=== PATIENT | female | born 1950 | race Caucasian/White ===

== ENCOUNTER → 2020-07-25 | Day surgery (SDC) | payer MEDICARE, OTHER ==
[~2020-07-25] MED LIST: ARTHRITIS PAIN100 GM TP; BUMETANIDE1 MG PO; FERROCITE324 MG PO; ISOSORBIDE MONO30 MG PO; JANUVIA 100 MG100 MG PO; MELATONIN5 MG PO; MIRAPEX0.125 MG PO; MULTI-VITAMIN1 EACH PO; POTASSIUM CHLO10 MEQ PO; PROTONIX40 MG PO; PROZAC10 MG PO; TRAZODONE HCL150 MG PO; VENTOLIN/PROVE0.5 ML INH
== END | disposition home or self-care (01) ==
LOC: OR 06:41
DX: D12.5 Benign neoplasm of sigmoid colon (principal); K44.9 Diaphragmatic hernia without obstruction or gangrene; K76.6 Portal hypertension; K31.89 Other diseases of stomach and duodenum; I85.00 Esophageal varices without bleeding; K64.4 Residual hemorrhoidal skin tags; K64.8 Other hemorrhoids; D50.9 Iron deficiency anemia, unspecified; K75.81 Nonalcoholic steatohepatitis (NASH); D61.818 Other pancytopenia; I10 Essential (primary) hypertension; E11.9 Type 2 diabetes mellitus without complications; J45.909 Unspecified asthma, uncomplicated; E78.5 Hyperlipidemia, unspecified; E78.00 Pure hypercholesterolemia, unspecified; E66.01 Morbid (severe) obesity due to excess calories; G47.30 Sleep apnea, unspecified; Z68.41 Body mass index [BMI] 40.0-44.9, adult; Z79.84 Long term (current) use of oral hypoglycemic drugs; Z79.899 Other long term (current) drug therapy; Z88.1 Allergy status to other antibiotic agents
CPT/HCPCS: 82962; J2704; J3010; J7040

== ENCOUNTER → 2021-05-16 | Day surgery (SDC) | payer MEDICARE, OTHER ==
[~2021-05-16] MED LIST changes: +ANIMAL SHAPES1 EAC2 PO; +ASPIRIN CHEWABL81 MG PO; +DICLOFENAC SOD100 GM TP; +FEOSOL325 MG PO; +JARDIANCE10 MG PO; +LIPITOR40 MG PO; +MELATONIN5 M2 PO; +ONDANSETRON ODT4 MG PO; +PERCOCET 5-3251 EACH PO; +POTASSIUM CHLO10 ME2 PO; +PRAMIPEXOLE E0.75 MG PO; +PROAIR DIGIHAL90 MCG INH; +PROTONIX 40 MG40 M1 PO
== END | disposition home or self-care (01) ==
LOC: OR 05:50
DX: I85.10 Secondary esophageal varices without bleeding (principal); K76.6 Portal hypertension; K31.89 Other diseases of stomach and duodenum; K92.2 Gastrointestinal hemorrhage, unspecified; K75.81 Nonalcoholic steatohepatitis (NASH); K74.69 Other cirrhosis of liver; D61.818 Other pancytopenia; D50.9 Iron deficiency anemia, unspecified; I10 Essential (primary) hypertension; E11.9 Type 2 diabetes mellitus without complications; J45.909 Unspecified asthma, uncomplicated; G47.30 Sleep apnea, unspecified; E78.00 Pure hypercholesterolemia, unspecified; E66.01 Morbid (severe) obesity due to excess calories; Z68.41 Body mass index [BMI] 40.0-44.9, adult; Z88.1 Allergy status to other antibiotic agents; Z88.2 Allergy status to sulfonamides; Z79.899 Other long term (current) drug therapy; Z98.51 Tubal ligation status; Z90.49 Acquired absence of other specified parts of digestive tract
CPT/HCPCS: 82962; J2250; J2704; J3010; J7040

== ENCOUNTER → 2021-05-18 | Outpatient (CLI) | payer MEDICARE, OTHER | LOC: EXRD 04-24 10:00 | DX: K75.81 Nonalcoholic steatohepatitis (NASH) (principal) | CPT/HCPCS: 76705 ==

== ENCOUNTER → 2021-06-21 | Outpatient (CLI) | payer MEDICARE, OTHER | LOC: CT 12:44 | DX: K75.81 Nonalcoholic steatohepatitis (NASH) (principal); K76.6 Portal hypertension | CPT/HCPCS: 36415; 74170; 82565; Q9967 ==

== ENCOUNTER → 2021-12-31 | Outpatient (CLI) | payer MEDICARE, OTHER | LOC: HEART 5 12-26 08:00 | DX: R07.9 Chest pain, unspecified (principal); I48.91 Unspecified atrial fibrillation; R94.39 Abnormal result of other cardiovascular function study; I08.3 Combined rheumatic disorders of mitral, aortic and tricuspid valves; I27.20 Pulmonary hypertension, unspecified | CPT/HCPCS: 78452; 93306; A9502; J2785 ==